=== PATIENT | female | born 1985 ===

== ENCOUNTER 2017-12-12 10:50 | Emergency (ER) | payer BC ==
[2017-12-12] MEDS ORDERED: Ibuprofen TAB* 400 MG PO ONE (14:21)
[2017-12-12] MEDS ORDERED: Tetan/Diph/Pertus SYR(Tdap)* 0.5 ML SYR(BOOSTRIX) use SYR IM ONE (15:02)
[2017-12-12] MEDS ORDERED: ceFAZolin 1 GM VIAL(*) 1 GM in NS 0.9% 50 ML* 50 ML IVPB ONE (15:03)
--- NOTE | 2017-12-12 15:06 | UC ---
Knee Pain HPI - HPI Summary HPI Summary: 32 yo female lacerated left knee this AM Was in a dogsled and knee struck a rock (or stump) pain with wt bearing Td not UTD generally healthy - History of Current Complaint Chief Complaint: UCLaceration Stated Complaint: KNEE INJURY Time Seen by Provider: 12/12/17 14:51 Hx Obtained From: Patient Hx Last Menstrual Period: 1 WEEK AGO Onset/Duration: Sudden Onset, Lasting Hours Severity Initially: Severe Severity Currently: Moderate Location Of Injury: left knee Pain Intensity: 6 Pain Scale Used: 0-10 Numeric Character: Aching, Throbbing Aggravating Factor(s): Movement, Weight Bearing Able to Bear Weight: Yes - Allergies/Home Medications Allergies/Adverse Reactions: Allergies Allergy/AdvReac Type Severity Reaction Status Date / Time No Known Allergies Allergy Verified 12/12/17 11:37 Home Medications: Home Medications NK [No Home Medications Reported] 12/12/17 [History Confirmed 12/12/17] PMH/Surg Hx/FS Hx/Imm Hx Previously Healthy: Yes - Surgical History Surgical History: None - Family History Known Family History: Positive: Hypertension, Diabetes - Social History Alcohol Use: Rare Substance Use Type: None Smoking Status (MU): Never Smoked Tobacco Review of Systems Constitutional: Negative Skin: Negative Eyes: Negative ENT: Negative Respiratory: Negative Cardiovascular: Negative Gastrointestinal: Negative Genitourinary: Negative Motor: Negative Neurovascular: Negative Musculoskeletal: Negative Neurological: Negative Psychological: Negative Is Patient Immunocompromised?: No All Other Systems Reviewed And Are Negative: Yes Physical Exam Triage Information Reviewed: Yes Appearance: Well-Appearing, No Pain Distress, Well-Nourished Vital Signs: Initial Vital Signs Temp 98.6 F 12/12/17 11:37 Pulse 91 12/12/17 11:37 Resp 16 12/12/17 11:37 BP 133/86 12/12/17 11:37 Pulse Ox 100 12/12/17 11:37 Vital Signs Reviewed: Yes Eyes: Positive: Conjunctiva Clear ENT: Positive: Hearing grossly normal. Negative: Nasal congestion, Nasal drainage, Trismus, Muffled voice, Hoarse voice Neck: Positive: Supple, Nontender Respiratory: Positive: Lungs clear, Normal breath sounds, No respiratory distress, No accessory muscle use Cardiovascular: Positive: RRR, No Murmur Musculoskeletal: Positive: ROM Limited @ - left knee Neurological: Positive: Alert Psychological Exam: Normal Skin Exam: Other Knee Pain Course/Dx - Course Course Of Treatment: d/w Naa [facility]. to [facility] via EMS - Differential Dx/Diagnosis Provider Diagnoses: left knee laceration involving joint Discharge - Discharge Plan Condition: Stable Disposition: TRANS HIGHER LVL OF CARE FAC Referrals: No Primary Care Phys,NOPCP [Primary Care Provider] - Images Front/Back of Body, Lg ([place]): 1 - 3cm laceration. suspicious for extension into joint
[2017-12-12] MEDS ORDERED: ceFAZolin 1 GM VIAL(*) ONE (15:09)
--- NOTE | 2017-12-12 16:17 | RAD ---
Indication: Pain and edema below LEFT patella following injury. Comparison: No relevant prior exams available on the [facility] PACS for comparison. Technique: LEFT knee: AP, tunnel, lateral, sunrise views. Report: Soft tissue swelling most prominent at the infrapatellar region. Suggestion of abnormal soft tissue gas at the infrapatellar soft tissues and along the lateral aspect of the distal thigh outlining the vastus lateralis muscle and visualized lower leg. No conspicuous foreign body evident. Negative for significant joint effusion. Negative for fracture or malalignment. IMPRESSION: 1. Soft tissue injury with subcutaneous gas laterally. Correlate for puncture wound. 2. Negative for joint effusion, fracture, or malalignment.
[2017-12-12 16:39] VITALS: BP 134/87
== END 2017-12-12 16:20 | disposition short-term general hospital (02) ==
LOC: UCEAST 10:50
DX: S81.012A Laceration without foreign body, left knee, initial encounter (principal); S89.92XA Unspecified injury of left lower leg, initial encounter; W22.8XXA Striking against or struck by other objects, initial encounter; Y93.29 Activity, other involving ice and snow; Y92.9 Unspecified place or not applicable; Z23 Encounter for immunization
CPT/HCPCS: 90471; 90715; 96365; 99203; A9270-GY; G0463; J0690

== ENCOUNTER 2017-12-12 16:37 | Day surgery (SDC) | payer BC ==
--- NOTE | 2017-12-12 17:13 | ED ---
Lower Extremity - HPI Summary HPI Summary: 32-year-old female presents with laceration to the left knee today. States she was dog sledding and a piece of rock left knee struck her left knee States [facility] and they're concerned that the laceration patient extended into her knee joint. She states she was given a tetanus and a gram of Ancef. She also given ibuprofen. She denies any numbness or tingling. She denies any other injury. She has no medical conditions. - History of Current Complaint Chief Complaint: EDExtremityLower Stated Complaint: KNEE INJURY Time Seen by Provider: 12/12/17 17:02 Hx Last Menstrual Period: 1 WEEK AGO Pain Intensity: 2 - Allergies/Home Medications Allergies/Adverse Reactions: Allergies Allergy/AdvReac Type Severity Reaction Status Date / Time No Known Allergies Allergy Verified 12/12/17 11:37 PMH/Surg Hx/FS Hx/Imm Hx Endocrine/Hematology History: Denies: Hx Diabetes, Hx Thyroid Disease Cardiovascular History: Denies: Hx Hypertension Respiratory History: Denies: Hx Asthma, Hx Chronic Obstructive Pulmonary Disease (COPD) GI History: Denies: Hx Ulcer Infectious Disease History: No Infectious Disease History: Denies: Hx Hepatitis, Hx Human Immunodeficiency Virus (HIV), Traveled Outside the [place] in Last 30 Days - Family History Known Family History: Positive: Hypertension, Diabetes - Social History Alcohol Use: Rare Substance Use Type: Reports: None Smoking Status (MU): Never Smoked Tobacco Review of Systems Negative: Fever Negative: Chest Pain Negative: Shortness Of Breath Positive: Other - left knee laceration All Other Systems Reviewed And Are Negative: Yes Physical Exam Triage Information Reviewed: Yes Vital Signs On Initial Exam: Initial Vitals Temp Pulse Resp BP Pulse Ox 98.5 F 78 16 132/81 98 12/12/17 16:52 12/12/17 16:52 12/12/17 16:52 12/12/17 16:52 12/12/17 16:52 Vital Signs Reviewed: Yes Appearance: Positive: Well-Appearing Skin: Positive: Warm, Dry Head/Face: Positive: Normal Head/Face Inspection Eyes: Positive: Normal, Conjunctiva Clear Respiratory/Lung Sounds: Positive: Clear to Auscultation, Breath Sounds Present Cardiovascular: Positive: Normal, RRR Musculoskeletal: Positive: Strength/ROM Intact - left knee, Other - 2 and 1/2cm by 1cm deep laceration that extends to patella, 1 cm half mckeon laceration on top of left knee Neurological: Positive: Normal Psychiatric: Positive: Normal Diagnostics - Vital Signs Vital Signs Temp Pulse Resp BP Pulse Ox 12/12/17 16:52 98.5 F 78 16 132/81 98 - Laboratory Lab Statement: Any lab studies that have been ordered have been reviewed, and results considered in the medical decision making process. Lower Extremity Course/Dx - Course Course Of Treatment: 32-year-old female presents with laceration to the left knee today. States she was dog sledding and a piece of rock left knee struck her left knee States [facility] and they're concerned that the laceration patient extended into her knee joint. She states she was given a tetanus and a gram of Ancef. She also given ibuprofen. She denies any numbness or tingling. She denies any other injury. She has no medical conditions. On exam to 2 and 1/2cm centimeter laceration over the left lateral aspect of the knee and the edge of the patella. dr shafer came and evulated patient and is concerned that extends into knee joint so will take to OR for clean out and repair. - Diagnoses Differential Diagnosis/HQI/PQRI: Positive: Foreign Body, Other - laceration, tendon involvement Provider Diagnoses: Laceration of knee, left, complicated Discharge - Discharge Plan Condition: Good Disposition: ADMITTED TO [facility]
[2017-12-12] MEDS ORDERED: ceFAZolin 1 GM in Dextrose (*) 1 GM/50 ML BAG IVPB ONE (18:18)
[2017-12-12] MEDS ORDERED: ceFAZolin 1 GM VIAL(*) 1 GM in NS 0.9% 50 ML* 50 ML IVPB ONE (18:20)
[2017-12-12] MEDS ORDERED: Bupivacaine 0.25% SDV* 30 ML ONE (18:21)
[2017-12-12] MEDS ORDERED: fentaNYL* 50 MCG/ML 2 ML VIAL (100 MCG VIAL) ONE ×2 (18:30→19:00)
[2017-12-12] MEDS ORDERED: Midazolam* 1 MG/ML 2 ML VIAL (2 MG) ONE (18:31)
[2017-12-12] MEDS ORDERED: Lidocaine 2% PF * 5 ML VIAL ONE (18:36)
[2017-12-12] MEDS ORDERED: Dexamethasone IV* 4 MG/ML 1 ML (4 MG) ONE (18:36)
[2017-12-12] MEDS ORDERED: Famotidine IV* 10 MG/ML 2 ML (20 mg) ONE (18:36)
[2017-12-12] MEDS ORDERED: Mivacurium Chloride* 20 MG/10 ML VIAL IV ONE (18:36)
[2017-12-12] MEDS ORDERED: Propofol* 10 MG/ML 20 ML BTL IV PUSH ONE (18:36)
[2017-12-12] MEDS ORDERED: HYDROcodone/ACETAMIN 5-325 MG* 1 TAB PO PRN (19:02)
[2017-12-12] MEDS ORDERED: Nalbuphine* 20 MG/ML 1 ML VIAL IV PRN (19:02)
[2017-12-12] MEDS ORDERED: PROCHLORPERAZINE INJ 5 MG/ML 2 ML VIAL IV PRN (19:02)
[2017-12-12] MEDS ORDERED: fentaNYL* 50 MCG/ML 2 ML VIAL (100 MCG VIAL) IV PRN (19:02)
[2017-12-12] MEDS ORDERED: Naloxone* 0.4 MG/ML 1 ML VIAL IV PRN (19:02)
[2017-12-12] MEDS ORDERED: Buffered Lidocaine 0.9% SYRIN* 5 ML/SYR SYRINGE INTRADERM ONE (19:02)
[2017-12-12] MEDS ORDERED: DiMENhydriNATE IV* 50 MG/ML VIAL IV PUSH PRN (19:02)
[2017-12-12] MEDS ORDERED: Acetaminophen TAB* 325 MG PO PRN (19:02)
[2017-12-12] MEDS ORDERED: Ondansetron INJ* 2 MG/ML VIAL IV PRN (19:02)
--- NOTE | 2017-12-12 20:04 | HP ---
HISTORY AND PHYSICAL: DATE OF ADMISSION: 12/12/17 CHIEF COMPLAINT: Right shoulder pain. HISTORY OF PRESENT ILLNESS: Rasheeda had a fall on the ice earlier today and fractured her right proximal humerus. It was a mechanical fall. She denies any chest pain or shortness of breath. She went to [place]. There was concern for a fracture dislocation. She was sent here where I got a CT scan showing a very displaced and angulated four-part proximal humerus fracture, but the humeral head appropriately located on the glenoid. PAST MEDICAL HISTORY: 1. History of throat cancer treated with radiation at [facility]. 2. COPD/asthma. 3. Neuropathy. 4. History of foot fractures. 5. Arthritis. 6. History of colon polyps. 7. Diabetes type 2, treated with metformin and insulin at night. PAST SURGICAL HISTORY: Cholecystectomy back in the . MEDICATIONS: Home medications include: 1. Alendronate. 2. Atorvastatin. 3. BuSpar. 4. Cetirizine. 5. Cyclosporin drops. 6. Duloxetine. 7. Ergocalciferol. 8. Gabapentin. 9. Insulin glargine. 10. Lisinopril. 11. Metformin. 12. Omeprazole. 13. Prazosin. 14. Pyridoxine. 15. Tiotropium. ALLERGIES: No known drug allergies. FAMILY HISTORY: Reviewed and noncontributory. No history of bleeding or anesthesia disorders. SOCIAL HISTORY: She is a longstanding smoker. She rarely drinks alcohol. She denies recreational drug use. She lives independently. REVIEW OF SYSTEMS: Positive for right shoulder pain. Otherwise, a full 14- point review of systems was conducted and is negative for chest pain, shortness of breath, bowel or bladder problems. PHYSICAL EXAMINATION GENERAL: Awake and alert, very pleasant. HEENT: Normal facies. Normocephalic, atraumatic. NECK: Full painless range of motion. No tenderness. LUNGS: There are some scattered wheezes. CARDIAC: Regular. ABDOMEN: Soft, nondistended. MUSCULOSKELETAL: There is quite a bit of deformity and swelling about the right shoulder. The elbow and wrist have an unremarkable exam as does the left upper extremity and bilateral lower extremities. NEUROLOGICAL: Positive AIN, PIN and ulnar motor function distally. Neurovascularly intact in the other extremities. VASCULAR: Warm and well perfused. IMAGING: X-rays were reviewed on the [facility] system; they show a proximal humerus fracture that is displaced. CT scan performed here shows a displaced and highly angulated four-part proximal humerus fracture. IMPRESSION: Right displaced and four-part proximal humerus fracture. PLAN: Since she is not dislocated, we will go ahead and admit her overnight. We will have the hospitalist service see her. They told me they want to do an echocardiogram in the morning. We will have them do medical management for her diabetes medications and we will plan for a surgical intervention pending any further concerns by the hospitalist service tomorrow. [id number]/[facility] #: [id number] REGLA
[2017-12-12 20:34] VITALS: BP 132/92
--- NOTE | 2017-12-13 14:35 | OP ---
OPERATIVE REPORT: DATE OF OPERATION: 12/12/17 DATE OF : 87 SURGEON: Cam James MD. RUNNING RIGGER: ANDRES Dickson. ANESTHESIOLOGIST: Dr. Huggins. ANESTHESIA: General. PRE-OP DIAGNOSIS: Left knee traumatic arthrotomy and traumatic wound measuring 3 cm after dog sledding injury earlier today. POST-OP DIAGNOSIS: Left knee traumatic arthrotomy and traumatic wound measuring 3 cm after dog sledding injury earlier today. OPERATIVE PROCEDURES: 1. Irrigation and debridement, left knee traumatic arthropathy. 2. Debridement of skin and subcutaneous tissue and fascia with removal of multiple small foreign bodies consistent with gravel and small rocks. 3. Closure of traumatic wound measuring 3 cm. 4. Exploration of penetrating extremity wound. INDICATIONS: Rasheeda was dog sledding earlier when she is unsure what struck the knee, but she had quite a bit of bleeding and she went to the [facility] and was sent over to the ER due to concern for a traumatic arthrotomy. I consulted on her in the emergency room and agreed given the amount of x-ray findings with air all about the joint and what looks like a punctate wound into the joint as well as contamination in the wound I thought it would be better served with removal of the foreign bodies, I and D of the knee, and get the wound nice and clean prior to closure. ESTIMATED BLOOD LOSS: 5 mL. COMPLICATIONS: None. FINDINGS: As expected. DESCRIPTION OF PROCEDURE: Rasheeda was seen in the preoperative holding area. The correct site, side, and procedure were identified. We came back to the operating room and the leg was prepped and draped with a Betadine scrub and we had a formal time-out. I began by extending the traumatic wound, which was oblique, but mostly transverse over the distal lateral aspect of the knee, just lateral to the patella and the patellar tendon. The wound was extended proximally and distally. Full-thickness flaps were raised off the paratenon, which was preserved. There were multiple fragments, which had the appearance of small rocks. These were irrigated out and debrided with a rongeur, the scissors, and the knife. I then made a lateral parapatellar arthrotomy, which was extended in line with the traumatic arthrotomy. Cysto tubing was inserted into the joint and the joint and wound were irrigated out with over 3 liters of saline. Everything was nice and clean. At this point, I turned back the nice, clean, healthy skin edges. We went ahead and closed the arthrotomy with multiple 2-0 PDS [id number] sutures. The wound was closed with 3-0 nylon sutures. The wound was dressed with Xeroform and 4 x 4s, sterile Webril, and an Petey wrap. I had infiltrated 0.25% Marcaine into the joint and all about the knee prior to placing the dressings. Tourniquet was deflated and she was woken up and taken to the recovery room in stable condition. [id number]/[facility] #: [id number] REGLA
== END 2017-12-12 18:00 | disposition home or self-care (01) ==
LOC: ED 16:37 → OR 18:00
PROVIDERS: ATTEND Orthopaedic Surgery Hand Surgery
DX: S81.022A Laceration with foreign body, left knee, initial encounter (principal); W22.8XXA Striking against or struck by other objects, initial encounter; Y93.I9 Activity, other involving external motion; Y92.89 Other specified places as the place of occurrence of the external cause
CPT/HCPCS: 81025; 99282; J0690; J1100; J2250; J2704; J3010